=== PATIENT | male | born 1980 | race Caucasian/White ===

== ENCOUNTER 2023-07-12 12:41 | Emergency (ER) | payer SELFPAY ==
[2023-07-12] MEDS ORDERED: Take Home: Cyclobenzaprine 10 MG Tab, 4 Tab Pack PO ONE (14:29)
[2023-07-12] MEDS ORDERED: Take Home: Naproxen 500 MG Tab, 4 Tab Pack PO ONE (14:29)
== END 2023-07-12 14:38 | disposition home or self-care (01) ==
LOC: VM.ED 12:41
DX: M54.50 Low back pain, unspecified (principal)
CPT/HCPCS: 72100; 99283; A9270-GY